=== PATIENT | male | born 1970 | race Caucasian/White ===

== ENCOUNTER 2021-12-04 11:35 | Observation (INO) ==
[2021-12-04] MEDS ORDERED: THIAMINE INJ 100 MG, FOLIC ACID INJ 1 MG, MAGNESIUM SULF INJ 2 GM, MULTIVITAMIN INJ 10 ... IV ONE (12:49)
[2021-12-04] MEDS ORDERED: atenoloL 25 MG TABLET PO STA (12:50)
[2021-12-04] MEDS ORDERED: LORazepam 2 MG/1 ML VIAL IV STA (12:50)
[2021-12-04] MEDS ORDERED: THIAMINE INJ 100 MG, FOLIC ACID INJ 1 MG, MAGNESIUM SULF INJ 2 GM in SODIUM CHLORIDE 0.... IV ONE (13:30)
[2021-12-04 13:38] LABS: Basophils % 0.3 % (0.0-0.8); Hemoglobin 12.6 GM/DL (14.0-18.0); Immature Granulocytes % 0.7 %; Immature Granulocytes Absolute 0.06 #; Lymphocytes % 10.9 % (21.2-54.2); Mean Corpuscular Volume 98.6 FL (87-102); Monocytes % 22.1 % (1.7-12.7); Platelet Count 204 T/CUMM (130-400); Red Blood Count 3.55 MC/CUMM (3.8-5.5); Red Cell Distribution Width 11.2 % (9.3-17.3); White Blood Count 9.2 T/CUMM (4-12)
[2021-12-04 13:58] LABS: Alanine Aminotransferase 69 U/L (16-61); Albumin 2.9 G/DL (3.4-5.0); Alkaline Phosphatase 90 U/L (45-117); Aspartate Amino Transferase 82 U/L (0-37); Blood Urea Nitrogen 27 MG/DL (7-18); Calcium 9.5 MG/DL (8.5-10.1); Carbon Dioxide 28 MMOL/L (21-32); Chloride 100 MMOL/L (98-107); Glucose 94 MG/DL (74-106); Sodium 136 MMOL/L (136-145); Total Protein 7.1 G/DL (6.4-8.2)
[2021-12-04 14:00] LABS: Potassium 2.3 MMOL/L (3.5-5.1)
[2021-12-04] MEDS ORDERED: POTASSIUM CHLORIDE 20 MEQ TABLET PO STA (14:01)
[2021-12-04 14:04] LABS: Band Neutrophils 9 % (0-10); Lymphocytes 14 % (20-55); Platelet Estimate Adequate; Total Cells Counted 100
[2021-12-04] MEDS ORDERED: ONDANSETRON 4 MG/2 ML VIAL IV PRN (14:23)
[2021-12-04] MEDS ORDERED: LORazepam 2 MG/1 ML VIAL IV PRN (14:27)
[2021-12-04] MEDS ORDERED: TEMAZEPAM 15 MG CAPSULE PO PRN (14:28)
[2021-12-04] MEDS ORDERED: METOPROLOL TARTRATE 5 MG/5 ML VIAL IV PRN (14:43)
[2021-12-04 15:26] LABS: Hepatitis B Core IgM Quant 0.16 Index; Hepatitis B Surface Ag Quant < 0.10 Index; Hepatitis B Surface Ag Result Non-Reactive (NonReactive); Hepatitis C Virus Ab Quant 0.03 Index; Hepatitis C Virus Ab Result Non-Reactive (NonReactive)
[2021-12-04] MEDS: chlordiazePOXIDE 25 MG CAPSULE PO SCH ×2 (15:55→21:40)
[2021-12-04] MEDS: NICOTINE 21 MG/24 HR PATCH TRANSDERM SCH (17:00)
[2021-12-04] MEDS: ENOXAPARIN 40 MG/0.4 ML SYRINGE SUBCUT SCH (17:01)
[2021-12-04 18:31] LABS: Bilirubin,Urine Negative (Negative); Blood, Urine Negative (Negative); Glucose,Urine (UA) Negative (Negative); Ketones,Urine Negative (Negative); Mucus,Urine Occasional /LPF (Occasional); Nitrite,Urine Negative (Negative); Protein,Urine 30 mg/dL (Negative); Squamous Epithelial Cell,Urine Occasional /HPF (0-10); Urine Appearance CLEAR (Clear); Urine Color Amber (Yellow); Urine Specific Gravity 1.021 (1.001-1.035)
[2021-12-04 18:55] LABS: Barbiturates Screen,Urine Negative (Negative); Benzodiazepines Screen,Urine Negative (Negative); Cannabinoid Screen,Urine Positive (Negative); Opiate Screen,Urine Negative (Negative); Phencyclidine Screen,Urine Negative (Negative)
[2021-12-04] MEDS: POTASSIUM CHLORIDE 20 MEQ TABLET PO SCH (21:40)
[2021-12-04] MEDS: SODIUM CHLOR 0.9% KCL 40 MEQ 40 MEQ/1,000 ML BAG IV SCH (23:30)
[2021-12-05 05:27] LABS: Basophils % 0.3 % (0.0-0.8); Hematocrit 29.5 VOL% (42.0-52.0); Hemoglobin 10.6 GM/DL (14.0-18.0); Immature Granulocytes % 0.6 %; Immature Granulocytes Absolute 0.04 #; Lymphocytes % 14.8 % (21.2-54.2); Mean Corpuscular HGB Conc 35.9 GM/DL (32-36); Mean Corpuscular Volume 100.7 FL (87-102); Mean Platelet Volume 9.9 FL (9.6-12.0); Monocytes # 1.4 10*3/uL (0.11-0.8); Monocytes % 20.1 % (1.7-12.7); Neutrophils % 64.2 % (38.7-73.9); Platelet Count 180 T/CUMM (130-400); Red Blood Count 2.93 MC/CUMM (3.8-5.5); Red Cell Distribution Width 11.4 % (9.3-17.3)
[2021-12-05 05:51] LABS: Albumin 2.3 G/DL (3.4-5.0); Calcium 8.4 MG/DL (8.5-10.1); Osmolality,Calculated 277.7 MOS/KG (273-304); Potassium 2.7 MMOL/L (3.5-5.1); Risk Ratio 2.67; Total Protein 5.8 G/DL (6.4-8.2); VLDL Cholesterol 14.6 MG/DL
[2021-12-05 05:54] LABS: Band Neutrophils 1 % (0-10); Lymphocytes 20 % (20-55); Platelet Estimate Adequate; Total Cells Counted 100
[2021-12-05] MEDS: SODIUM CHLOR 0.9% KCL 40 MEQ 40 MEQ/1,000 ML BAG IV SCH ×4 (07:09→23:53)
[2021-12-05] MEDS ORDERED: POTASSIUM CHLORIDE 20 MEQ TABLET PO ONE (07:23)
[2021-12-05] MEDS: MULTIVITAMIN (CENTRUM) TABLET PO SCH (08:13)
[2021-12-05] MEDS: THIAMINE 100 MG TABLET PO SCH (08:14)
[2021-12-05] MEDS: FOLIC ACID 1 MG TABLET PO SCH (08:14)
[2021-12-05] MEDS: PANTOPRAZOLE 40 MG TABLET PO SCH (08:14)
[2021-12-05] MEDS: POTASSIUM CHLORIDE 20 MEQ TABLET PO SCH ×2 (08:14→20:32)
[2021-12-05] MEDS: NICOTINE 21 MG/24 HR PATCH TRANSDERM SCH (08:14)
[2021-12-05] MEDS: chlordiazePOXIDE 25 MG CAPSULE PO SCH ×3 (08:14→20:32)
[2021-12-05] MEDS: ENOXAPARIN 40 MG/0.4 ML SYRINGE SUBCUT SCH (15:13)
[2021-12-05] MEDS: ACETAMINOPHEN 325 MG TABLET PO PRN (20:33)
[2021-12-06] MEDS: SODIUM CHLOR 0.9% KCL 40 MEQ 40 MEQ/1,000 ML BAG IV SCH ×2 (07:51→15:51)
[2021-12-06] MEDS: FOLIC ACID 1 MG TABLET PO SCH (08:00)
[2021-12-06] MEDS: POTASSIUM CHLORIDE 20 MEQ TABLET PO SCH ×2 (08:00→21:11)
[2021-12-06] MEDS: chlordiazePOXIDE 25 MG CAPSULE PO SCH (08:00)
[2021-12-06] MEDS: THIAMINE 100 MG TABLET PO SCH (08:00)
[2021-12-06] MEDS: MULTIVITAMIN (CENTRUM) TABLET PO SCH (08:00)
[2021-12-06] MEDS: PANTOPRAZOLE 40 MG TABLET PO SCH (08:00)
[2021-12-06] MEDS: NICOTINE 21 MG/24 HR PATCH TRANSDERM SCH (08:00)
[2021-12-06 09:27] LABS: Calcium 8.7 MG/DL (8.5-10.1); Osmolality,Calculated 271.8 MOS/KG (273-304); Potassium 3.4 MMOL/L (3.5-5.1)
[2021-12-06] MEDS ORDERED: KETOROLAC 30 MG/1 ML VIAL IV ONE ×2 (10:29→12:00)
[2021-12-06] MEDS ORDERED: MELOXICAM 7.5 MG TABLET PO SCH (10:45)
[2021-12-06] MEDS: ACETAMINOPHEN 325 MG TABLET PO PRN (11:39)
[2021-12-06] MEDS: chlordiazePOXIDE 10 MG CAPSULE PO SCH ×2 (14:54→21:11)
[2021-12-06] MEDS: ENOXAPARIN 40 MG/0.4 ML SYRINGE SUBCUT SCH (15:36)
[2021-12-06] MEDS ORDERED: MAGNESIUM SULF RIDER 4 GM/100 ML PREMIX IV ONE (17:47)
[2021-12-06] MEDS ORDERED: chlordiazePOXIDE 25 MG CAPSULE PO SCH (21:00)
[2021-12-07] MEDS: SODIUM CHLOR 0.9% KCL 40 MEQ 40 MEQ/1,000 ML BAG IV SCH ×2 (04:00→12:20)
[2021-12-07] MEDS: ACETAMINOPHEN 325 MG TABLET PO PRN ×2 (05:00→10:33)
[2021-12-07 05:26] LABS: Calcium 8.7 MG/DL (8.5-10.1); Osmolality,Calculated 276.5 MOS/KG (273-304); Potassium 4.1 MMOL/L (3.5-5.1)
[2021-12-07] MEDS: chlordiazePOXIDE 10 MG CAPSULE PO SCH (08:16)
[2021-12-07] MEDS: POTASSIUM CHLORIDE 20 MEQ TABLET PO SCH (08:17)
[2021-12-07] MEDS: THIAMINE 100 MG TABLET PO SCH (08:17)
[2021-12-07] MEDS: PANTOPRAZOLE 40 MG TABLET PO SCH (08:17)
[2021-12-07] MEDS: MULTIVITAMIN (CENTRUM) TABLET PO SCH (08:17)
[2021-12-07] MEDS: FOLIC ACID 1 MG TABLET PO SCH (08:17)
[2021-12-07] MEDS: NICOTINE 21 MG/24 HR PATCH TRANSDERM SCH (08:20)
[2021-12-07 12:25] VITALS: BP 128/88
[2021-12-07] MEDS ORDERED: LACTATED RINGERS 1,000 ML IV SCH (16:00)
[2021-12-07] MEDS ORDERED: ZINC OXIDE PASTE 113 GM TUBE TOP PRN (16:06)
[2021-12-08] MEDS ORDERED: MELOXICAM 7.5 MG TABLET PO SCH (09:00)
== END 2021-12-07 17:15 | disposition home health service (06) ==
LOC: N.EDINP 11:35 → N.ED 11:35 → SUATTDRO 14:23 → N.2W 16:01
PROVIDERS: ADMIT Internal Medicine; ATTEND Internal Medicine